=== PATIENT | female | born 1960 | race Caucasian/White ===

== ENCOUNTER → 2017-01-26 | Outpatient (CLI) | payer BC ==
[~2017-01-26] MED LIST: FIORICET TAB1 EA PO; HYDROCHLOROTHIA25 MG PO; LEVAQUIN750 MG PO; LEVOTHYROXINE150 MCG PO; LIPITOR TAB 2020 MG PO; PROTONIX 40 MG40 M1 PO; VITAMIN D50000 UNIT PO
== END ==
LOC: CT 11:16
DX: M54.5 Low back pain (principal); M51.36 Other intervertebral disc degeneration, lumbar region; Z88.8 Allergy status to other drugs, medicaments and biological substances
CPT/HCPCS: 72131

== ENCOUNTER 2017-02-21 18:48 | Emergency (ER) | payer BC ==
[2017-02-21 20:35] LABS: HEMOGLOBIN 14.2 gm/dl (12.3-15.3); RED BLOOD COUNT 4.67 M/UL (4.00-5.10); WHITE BLOOD COUNT 13.1 K/UL (4.5-11.0)
[2017-02-21 20:51] LABS: BUN/CREATININE RATIO 10 (0-10)
== END 2017-02-21 23:20 | disposition home or self-care (01) ==
LOC: ER1 18:48
PROVIDERS: Specialist/Technologist Athletic Trainer
DX: R50.9 Fever, unspecified (principal); M79.1 Myalgia; I10 Essential (primary) hypertension; E03.9 Hypothyroidism, unspecified; F17.200 Nicotine dependence, unspecified, uncomplicated; Z88.8 Allergy status to other drugs, medicaments and biological substances; Z86.73 Personal history of transient ischemic attack (TIA), and cerebral infarction without residual deficits
CPT/HCPCS: 36415; 80053; 81001; 82550; 83605; 85025; 87040; 87081; 87880; 96361; 96374; 96375; 99283; J1885; J2270; J2405; J7030

== ENCOUNTER 2017-02-23 08:53 | Inpatient (IN) | payer BC ==
[~2017-02-23] VITALS: Ht 167.6 cm; Wt 99.8 kg
[2017-02-23 09:31] LABS: HEMOGLOBIN 14.3 gm/dl (12.3-15.3); RED BLOOD COUNT 4.64 M/UL (4.00-5.10); WHITE BLOOD COUNT 13.9 K/UL (4.5-11.0)
[2017-02-23 09:48] LABS: BUN/CREATININE RATIO 10 (0-10)
[2017-02-24] MEDS ORDERED: LEVOTHYROXINE150 MCG PO (00:06)
[2017-02-24] MEDS ORDERED: PROTONIX 40 MG40 M1 PO (00:07)
[2017-02-24] MEDS ORDERED: HYDROCHLOROTHIA25 MG PO (00:07)
[2017-02-24] MEDS ORDERED: VITAMIN D50000 UNIT PO (00:08)
[2017-02-24] MEDS ORDERED: LIPITOR TAB 2020 MG PO (00:08)
[2017-02-24 06:46] LABS: HEMOGLOBIN 14.2 gm/dl (12.3-15.3); RED BLOOD COUNT 4.65 M/UL (4.00-5.10); WHITE BLOOD COUNT 13.4 K/UL (4.5-11.0)
[2017-02-24 06:55] LABS: BUN/CREATININE RATIO 10 (0-10)
[2017-02-25 06:11] LABS: RED BLOOD COUNT 3.86 M/UL (4.00-5.10); WHITE BLOOD COUNT 11.1 K/UL (4.5-11.0)
[2017-02-25 06:12] LABS: HEMOGLOBIN 11.7 gm/dl (12.3-15.3)
[2017-02-25 06:21] LABS: BUN/CREATININE RATIO 12 (0-10)
[2017-02-25 14:58] LABS: GLUCOSE,CSF 64 mg/dL (50-80); TOTAL PROTEIN,CSF 37 mg/dL (20-45)
[2017-02-26 08:18] LABS: RED BLOOD COUNT 3.96 M/UL (4.00-5.10)
[2017-02-26 08:29] LABS: WHITE BLOOD COUNT 7.9 K/UL (4.5-11.0)
[2017-02-26 08:35] LABS: BUN/CREATININE RATIO 10 (0-10)
[2017-02-27 06:27] LABS: HEMOGLOBIN 12.1 gm/dl (12.3-15.3); RED BLOOD COUNT 4.01 M/UL (4.00-5.10); WHITE BLOOD COUNT 7.5 K/UL (4.5-11.0)
[2017-02-27 06:48] LABS: BUN/CREATININE RATIO 10 (0-10)
[2017-02-27] MEDS ORDERED: FIORICET TAB1 EA PO (14:31)
[2017-02-27] MEDS ORDERED: LEVAQUIN750 MG PO (14:31)
== END 2017-02-27 15:00 | disposition home or self-care (01) | DRG 194 ==
LOC: ER1 08:53 → ZEROF 10:56 → MED SURG 4 10:56 → ZEROF 10:56 → MED SURG 4 19:55
PROVIDERS: Physician Assistant; ADMIT Family Medicine
PROC: 009U3ZX Drainage of Spinal Canal, Percutaneous Approach, Diagnostic (ICD-10-PCS; principal; 2017-02-25)
PROC: B01BZZZ Fluoroscopy of Spinal Cord (ICD-10-PCS; 2017-02-25)
DX: J18.9 Pneumonia, unspecified organism (principal); R65.10 Systemic inflammatory response syndrome (SIRS) of non-infectious origin without acute organ dysfunction; E86.0 Dehydration; R51 Headache; E87.6 Hypokalemia; I10 Essential (primary) hypertension; E03.9 Hypothyroidism, unspecified; E78.5 Hyperlipidemia, unspecified; D64.9 Anemia, unspecified; K21.9 Gastro-esophageal reflux disease without esophagitis; K44.9 Diaphragmatic hernia without obstruction or gangrene; K57.90 Diverticulosis of intestine, part unspecified, without perforation or abscess without bleeding; R91.1 Solitary pulmonary nodule; E55.9 Vitamin D deficiency, unspecified; F41.1 Generalized anxiety disorder; F32.9 Major depressive disorder, single episode, unspecified; Z87.01 Personal history of pneumonia (recurrent); Z87.891 Personal history of nicotine dependence; Z86.010 Personal history of colon polyps; Z79.899 Other long term (current) drug therapy; Z88.8 Allergy status to other drugs, medicaments and biological substances; Z90.710 Acquired absence of both cervix and uterus; Z90.49 Acquired absence of other specified parts of digestive tract; Z98.890 Other specified postprocedural states; Z82.49 Family history of ischemic heart disease and other diseases of the circulatory system
CPT/HCPCS: 36415; 70450; 70496; 71020; 77003; 80048; 80053; 81001; 82945; 83605; 83735; 84132; 84157; 85025; 85027; 85610; 85730; 87040; 87070; 87081; 87086; 87205; 87880; 89051; 93005; 94640; 94664; 96361; 96365; 96366; 96375; 96376; 99284; G0378; J1200; J1885; J1956; J2405; J2765; J7030; J7050; Q9963

== ENCOUNTER → 2017-03-14 | Outpatient (CLI) | payer BC | LOC: RAD 11:36 | DX: J18.9 Pneumonia, unspecified organism (principal); R91.8 Other nonspecific abnormal finding of lung field | CPT/HCPCS: 71020 ==

== ENCOUNTER → 2017-05-05 | Outpatient (CLI) | payer BC ==
[2017-05-05 12:01] LABS: BUN/CREATININE RATIO 13 (0-10)
== END ==
LOC: LAB 10:16
PROVIDERS: Nurse Practitioner Psychiatric/Mental Health
DX: M79.7 Fibromyalgia (principal); E03.9 Hypothyroidism, unspecified; M15.9 Polyosteoarthritis, unspecified; I10 Essential (primary) hypertension; R53.83 Other fatigue; Z79.899 Other long term (current) drug therapy
CPT/HCPCS: 36415; 80053; 80074; 82784; 84550; 86038; 86039; 86140; 86225; 86226; 86235; 86431

== ENCOUNTER 2021-01-27 10:24 | Emergency (ER) | payer BC ==
[~2021-01-27 10:24] MED LIST changes: +ANORO ELLIPTA1 EACH INH; +BROVANA15 MCG/2 M NEB; +CEFUROXIME500 MG PO; +IPRAT-ALBUT 0.5-3 ML INH; +MEDROL TAB 4 MG4 MG PO; +NAPROSYN500 MG PO; +NICOTINE PATCH1 EAC2 TOP; +NORCO 5-325 TA1 EACH PO; +NORCO 7.5-3251 EACH PO; +PREDNISONE 50 M50 MG PO; +PREDNISONE20 MG PO; +PROVENTIL HFA6.7 GM INH; +ROBITUSSIN AC480 ML PO; +TAMIFLU75 MG PO; +VALIUM 5 MG TAB5 MG PO; +VENTOLIN/PROVE0.5 ML INH; +VIBRAMYCIN100 MG PO; +XOPENEX0.31 MG/3 INH
[2021-01-27] MEDS ORDERED: CYCLOBENZAPRINE10 MG PO (12:25)
[2021-01-27] MEDS ORDERED: TORADOL 10 MG T10 MG PO (12:32)
== END 2021-01-27 12:35 | disposition home or self-care (01) ==
LOC: ER1 10:24
DX: M51.36 Other intervertebral disc degeneration, lumbar region (principal); M51.37 Other intervertebral disc degeneration, lumbosacral region; G89.29 Other chronic pain; K21.9 Gastro-esophageal reflux disease without esophagitis; E07.9 Disorder of thyroid, unspecified; Z90.49 Acquired absence of other specified parts of digestive tract; Z90.710 Acquired absence of both cervix and uterus
CPT/HCPCS: 72131; 96372; 99283; J1100; J1885

== ENCOUNTER → 2021-02-06 | Outpatient (CLI) | payer BC ==
[~2021-02-06] MED LIST changes: +CYCLOBENZAPRINE10 MG PO; +TORADOL 10 MG T10 MG PO
== END ==
LOC: EMI 08:12
DX: M51.16 Intervertebral disc disorders with radiculopathy, lumbar region (principal); M47.26 Other spondylosis with radiculopathy, lumbar region; M48.07 Spinal stenosis, lumbosacral region
CPT/HCPCS: 72148

== ENCOUNTER 2021-06-27 06:53 | Emergency (ER) | payer OTHER ==
[2021-06-27 08:20] LABS: HEMOGLOBIN 16.4 gm/dl (12.3-15.3); RED BLOOD COUNT 5.35 M/UL (4.00-5.10); WHITE BLOOD COUNT 7.3 K/UL (4.5-11.0)
[2021-06-27 08:35] LABS: BUN/CREATININE RATIO 12 (0-10)
[2021-07-20] MEDS ORDERED: ASPIRIN CHEWABL81 MG PO (01:00)
== END 2021-06-27 09:00 | disposition home or self-care (01) ==
LOC: ER1 06:53
PROVIDERS: Physician Assistant
DX: R10.9 Unspecified abdominal pain (principal); I10 Essential (primary) hypertension; F17.200 Nicotine dependence, unspecified, uncomplicated; Z90.49 Acquired absence of other specified parts of digestive tract; Z90.710 Acquired absence of both cervix and uterus
CPT/HCPCS: 80053; 81001; 85025; 96374; 99284; J1885

== ENCOUNTER → 2021-07-19 | Emergency (ER) | payer OTHER ==
[~2021-07-19] MED LIST changes: +ASPIRIN CHEWABL81 MG PO
[2021-07-19 21:27] LABS: HEMOGLOBIN 17.2 gm/dl (12.3-15.3); RED BLOOD COUNT 5.26 M/UL (4.00-5.10); WHITE BLOOD COUNT 5.1 K/UL (4.5-11.0)
[2021-07-19 21:50] LABS: BUN/CREATININE RATIO 13 (0-10)
== END | disposition home or self-care (01) ==
LOC: ER1 20:37
PROVIDERS: Physician Assistant
DX: Z23 Encounter for immunization (principal); U07.1 COVID-19; I10 Essential (primary) hypertension; J44.9 Chronic obstructive pulmonary disease, unspecified; K21.9 Gastro-esophageal reflux disease without esophagitis; E03.9 Hypothyroidism, unspecified; F17.200 Nicotine dependence, unspecified, uncomplicated; Z90.49 Acquired absence of other specified parts of digestive tract; Z90.710 Acquired absence of both cervix and uterus; Z90.89 Acquired absence of other organs; Z88.8 Allergy status to other drugs, medicaments and biological substances
CPT/HCPCS: 71045; 80053; 82550; 82553; 83874; 84484; 85025; 85379; 93005; 99284; M0243; U0002

== ENCOUNTER → 2022-03-09 | Outpatient (CLI) | payer OTHER | LOC: KOH-I 10:53 | DX: M51.27 Other intervertebral disc displacement, lumbosacral region (principal); M47.812 Spondylosis without myelopathy or radiculopathy, cervical region | CPT/HCPCS: 72040 ==

== ENCOUNTER 2022-08-06 09:30 | Emergency (ER) | payer OTHER | END 2022-08-06 12:54 | disposition home or self-care (01) | LOC: ER1 09:30 | DX: S93.402A Sprain of unspecified ligament of left ankle, initial encounter (principal); S93.502A Unspecified sprain of left great toe, initial encounter; F17.210 Nicotine dependence, cigarettes, uncomplicated; J44.9 Chronic obstructive pulmonary disease, unspecified; Z88.8 Allergy status to other drugs, medicaments and biological substances; W01.0XXA Fall on same level from slipping, tripping and stumbling without subsequent striking against object, initial encounter; Y92.009 Unspecified place in unspecified non-institutional (private) residence as the place of occurrence of the external cause | CPT/HCPCS: 73610; 99283 ==